=== PATIENT | male | born 1980 | race Caucasian/White ===

== ENCOUNTER 2020-08-20 13:54 | Emergency (ER) | payer OTHER ==
[2020-08-20 14:03] VITALS: BP 129/75
--- NOTE | 2020-08-20 14:24 | ED Physician Documentation ---
PD HPI UPPER EXT INJURY - Stated complaint Stated Complaint: RT HAND PX - Chief complaint Chief Complaint: Trauma Ext - History obtained from History obtained from: Patient - History of Present Illness Location: Right, Finger (index) Where injury occurred: Home Timing - onset: How many hours ago (4), Today Timing - duration: Hours (4) Timing - details: Abrupt onset Pain level max: 5 Pain level now: 3 Improved by: Rest Worsened by: Moving, Palpating Associated symptoms: No: Weakness, Numbness, Tingling, Swelling Recently seen: No: Not recently seen - Additonal information Additional information: states splinter to R index finger, pad. tried to remove and cut it out at home with no success. Td UTD. Pt is right handed. Review of Systems Constitutional: denies: Fever PD PAST MEDICAL HISTORY - Past Medical History Past Medical History: No - Past Surgical History Past Surgical History: No - Allergies Allergies/Adverse Reactions: Allergies Allergy/AdvReac Type Severity Reaction Status Date / Time No Known Drug Allergies Allergy Verified 08/20/20 14:00 - Social History Does the pt smoke?: Yes Smoking Status: Current every day smoker PD ED PE NORMAL - Vitals Vital signs reviewed: Yes - General General: Alert and oriented X 3, No acute distress - HEENT HEENT: Moist mucous membranes - Derm Derm: Warm and dry - Extremities Extremities: Other (R index finger - splinter in distal pad of digit. ) - Neuro Neuro: Alert and oriented X 3 Results - Vitals Vitals: Vital Signs - 24 hr 08/20/20 14:00 Temperature 36.4 C L Heart Rate 90 Respiratory 19 Rate Blood Pressure 129/75 O2 Saturation 100 Oxygen O2 Source Room air Procedures - FB removal FB location: Subcutaneous FB removal preparation: Local anesthesia-specify (1% buffered lidocaine) Removal method: Foreceps FB removal aftercare: No complications, Patient tolerated well, Removed successfully PD MEDICAL DECISION MAKING - ED course Complexity details: considered differential, d/w patient ED course: Splinter removed from the index finger. Tolerated well. No residual foreign body. Warnings of infection and instructions on wound care given at bedside. Patient counseled regarding signs and symptoms for which I believe and urgent re-evaluation would be necessary. Patient with good understanding of and agreement to plan and is comfortable going home at this time This document was made in part using voice recognition software. While efforts are made to proofread this document, sound alike and grammatical errors may occur. Departure - Departure Disposition: 01 Home, Self Care Clinical Impression: Foreign body in soft tissue Condition: Good Instructions: ED Foreign Body Soft Tissue Removed Follow-Up: your,doctor as needed. [Other] Comments: The splinter was removed today. Return if you notice redness, swelling or drainage from the finger. Otherwise this should heal on its own. Discharge Date/Time: 08/20/20 15:01
[2020-08-20] MEDS: BUFFERED LIDOCAINE 10 ML SYRINGE SUBQ STA (14:25)
== END 2020-08-20 15:01 | disposition home or self-care (01) ==
LOC: EDSEX → ED 13:54
DX: S60.450A Superficial foreign body of right index finger, initial encounter (principal); W45.8XXA Other foreign body or object entering through skin, initial encounter; Y92.009 Unspecified place in unspecified non-institutional (private) residence as the place of occurrence of the external cause; F17.200 Nicotine dependence, unspecified, uncomplicated
CPT/HCPCS: 99282